=== PATIENT | female | born 1965 | race Caucasian/White ===

== ENCOUNTER 2018-05-27 12:04 | Emergency (ER) | payer BC ==
[2018-05-27 12:15] VITALS: PULSE 96; TEMP 98.3; BMI 31.9
--- NOTE | 2018-05-27 12:30 | PDOC ---
Attending Attestation - HPI HPI: 05/27/18 13:34 The patient is a 52 year old female with no significant past medical history who presents to the ER with nausea, multiple episodes of dry heaving, and dizziness since 7AM today. Patient describes her dizziness as the room spinning upon waking up this morning with associated nausea. Patient is also complaining of a headache to her occipital region that is 5/10 in severity. The patient endorses dyspnea on exertion for the past month but denies denies chest pain, fever, chills, nausea, vomit, diarrhea, and constipation. Denies dysuria, frequency, urgency, and hematuria. Allergies: NKA Past surgical history: None reported. Social history: No reported alcohol, drug, or cigarette use. PCP: Dr. Shook <Amrita Altman - Last Filed: 05/27/18 13:34> - Physicial Exam PE: 05/27/18 14:44 Agree with resident exam. PAtient is well appearing and in no acute distress. Patient is alert and oriented x 3. Moving all extremities with good strength. CN grossly intact. Speech fluent and clear. - Medical Decision Making 05/27/18 14:54 Pt presents to the ED with the acute onset of vertigo that has now resolved. Now is neurologically intact and ambulatory with a normal gait and is asymptomatic. Symptoms most likely due to peripheral vertigo. Will discarge home with follow up with PMD. <Lucy Harman - Last Filed: 05/27/18 14:56>
--- NOTE | 2018-05-27 12:38 | PDOC ---
History of Present Illness - General Chief Complaint: Nausea/Vomiting Stated Complaint: Nausea/Vomiting Time Seen by Provider: 05/27/18 12:11 - History of Present Illness Initial Comments: 05/27/18 12:41 Pt is a 52 y/o lady with no significant past medical history who presents this afternoon to [facility] c/o nausea, vomiting, and vertigo since 7 am this morning. Pt endorses that she sensed the room spinning upon awakening and became nauseous. Also states she has been experiencing pain in the occipital region of her head that is a 5/10 in severity and throbbing in nature. Endorses 4 episodes of dry heaving since this am. Additionally, pt states she has been experiencing dyspnea on exertion for the past one month. Endorses chills, lighheadedness, nausea, and vomiting. Denies chest pain, fever, or shortness of breath. NKDA PMD- Dr Devon Shoko FH- Father(Diabetes), Mom (HTN) Social Hx- Denies alcohol or tobacco use. No recreational drug use. Past History - Past Medical History Allergies/Adverse Reactions: Allergies Allergy/AdvReac Type Severity Reaction Status Date / Time No Known Allergies Allergy Verified 05/27/18 12:10 Home Medications: Ambulatory Orders Meclizine HCl 25 mg PO AM PRN #7 tablet 05/27/18 COPD: No Other medical history: DENIES - Immunization History Immunization Up to Date: Yes - Suicide/Smoking/Psychosocial Hx Smoking History: Never smoked Hx Alcohol Use: No Drug/Substance Use Hx: No Substance Use Type: None Review of Systems - Review of Systems Able to Perform ROS?: Yes Is the patient limited Thai proficient: No Constitutional: Yes: Chills, Malaise Neurological: Yes: Headache, Dizziness *Physical Exam - Vital Signs Last Vital Signs Temp Pulse Resp BP Pulse Ox 98.3 F 96 H 18 149/101 97 05/27/18 12:11 05/27/18 12:11 05/27/18 12:11 05/27/18 12:11 05/27/18 12:11 - Physical Exam Comments: 05/27/18 13:44 GEN- NAD, AAOx3 HEENT- NC/AT, MMM RS- CTA B/L CVS- RRR, No MRG, S1 S2 ABD- NT ND No HSM EXT- No CCE ED Treatment Course - LABORATORY CBC & Chemistry Diagram: 05/27/18 13:18 05/27/18 13:18 Medical Decision Making - Medical Decision Making 05/27/18 13:47 Meclizine, Zofran, NS@ 100 ml/hr, EKG 05/27/18 14:28 Verigo no longer persists. Informed pt to follow up today or tomorrow with PMD regarding h/o chest pain and dyspnea on exertion. *DC/Admit/Observation/Transfer Diagnosis at time of Disposition: Vertigo, Chest pain - Discharge Dispostion Disposition: HOME Condition at time of disposition: Good Decision to Admit order: No - Prescriptions Prescriptions: Meclizine HCl 25 mg PO AM PRN #7 tablet PRN Reason: dizzines - Referrals - Patient Instructions Printed Discharge Instructions: DI for Vertigo, DI for Chest Pain - Post Discharge Activity Forms/Work/School Notes: Back to Work
[2018-05-27] MEDS ORDERED: MECLIZINE HCL 25 MG TABLET (FP) PO ONE (12:39)
[2018-05-27] MEDS ORDERED: ONDANSETRON 4 MG/2 ML VIAL IVPUSH ONE (12:40)
[2018-05-27 12:47] VITALS: BP 146/83
[2018-05-27] MEDS ORDERED: MECLIZINE HCL 25 MG TABLET (FP) ONE (12:50)
[2018-05-27] MEDS ORDERED: ONDANSETRON 4 MG/2 ML VIAL ONE (12:50)
[2018-05-27] MEDS ORDERED: SODIUM CHLORIDE 1,000 ML IV SCH (13:00)
[2018-05-27 13:29] LABS: BASO % 0.5 % (0-2.0); EOS % 0.9 % (0-4.5); HEMATOCRIT 42.9 % (32.4-45.2); HEMOGLOBIN 13.9 GM/dL (10.7-15.3); MCH 27.3 pg (25.7-33.7); MCHC 32.5 g/dl (32.0-36.0); MEAN PLT VOLUME 8.4 fl (7.5-11.1); MONO % 3.6 % (3.8-10.2); PLATELET COUNT 226 K/MM3 (134-434); RBC 5.11 M/mm3 (3.60-5.2); RDW 14.2 % (11.6-15.6); WHITE BLOOD COUNT 8.9 K/mm3 (4.0-10.0)
[2018-05-27 14:03] LABS: ALBUMIN 3.7 g/dl (3.4-5.0); ALK PHOS 78 U/L (45-117); ANION GAP 4 MMOL/L (8-16); BILIRUBIN,TOTAL 0.7 mg/dL (0.2-1.0); BLOOD UREA NITROGEN 16 mg/dL (7-18); CHLORIDE 106 mmol/L (98-107); CO2 30 mmol/L (21-32); CREATININE 0.5 mg/dL (0.55-1.3); GLUCOSE,RANDOM 136 mg/dL (74-106); SGPT/ALT 156 U/L (13-61); SODIUM 140 mmol/L (136-145); TOT PROT 7.1 g/dl (6.4-8.2)
[2018-05-27 14:07] LABS: POTASSIUM 4.6 mmol/L (3.5-5.1); SGOT/AST 62 U/L (15-37)
--- NOTE | 2018-05-27 14:26 | EKG ---
Test Reason : Blood Pressure : / mmHG Vent. Rate : 100 BPM Atrial Rate : 100 BPM P-R Int : 138 ms QRS Dur : 092 ms QT Int : 370 ms P-R-T Axes : 045 -06 045 degrees QTc Int : 477 ms NORMAL SINUS RHYTHM INFERIOR INFARCT , AGE UNDETERMINED CANNOT RULE OUT ANTERIOR INFARCT , AGE UNDETERMINED ABNORMAL ECG NO PREVIOUS ECGS AVAILABLE Confirmed by WALTER CHRISTINA MD ([id number]) on 05/27/2018 2:26:05 PM Referred By: Confirmed By:WALTER CHRISTINA MD
[2018-05-27] MEDS ORDERED: ACETAMINOPHEN 325 MG TABLET (FP) ONE (14:50)
[2018-05-27] MEDS ORDERED: ACETAMINOPHEN 325 MG TABLET (FP) PO ONE (14:52)
== END 2018-05-27 14:57 | disposition home or self-care (01) ==
LOC: JER 12:04
PROC: 3E033GC Introduction of Other Therapeutic Substance into Peripheral Vein, Percutaneous Approach (ICD-10-PCS; principal; 2018-05-27)
DX: R42 Dizziness and giddiness (principal); R07.9 Chest pain, unspecified
CPT/HCPCS: 36415; 80053; 85025; 93005; 93010; 99283-25; J7030